=== PATIENT | male | born 1985 | race Caucasian/White ===

== ENCOUNTER 2018-02-07 11:08 | Outpatient (REF) | payer SELFPAY | END 2018-02-07 11:09 | LOC: OM 11:08 | PROVIDERS: PCP Nurse Practitioner; Visit Provider Nurse Practitioner Family | DX: Z02.83 Encounter for blood-alcohol and blood-drug test (principal) ==

== ENCOUNTER 2018-02-07 11:08 | Outpatient (REF) | payer SELFPAY | END 2018-02-07 11:09 | LOC: OM 11:08 | PROVIDERS: PCP Nurse Practitioner; Visit Provider Nurse Practitioner Family | DX: Z02.1 Encounter for pre-employment examination (principal) ==

== ENCOUNTER 2018-06-13 21:38 | Emergency (ER) | payer OTHER, SELFPAY ==
[2018-06-13 21:42] VITALS: BP 135/84; PULSE 99; RESP 16; TEMP 36.5; O2SAT 96
--- NOTE | 2018-06-13 22:24 | W.ED.GENAD ---
Discharge Plan Disposition Patient Disposition: HOME Condition: Stable Discharge Details Chief Complaint: Orthopedic Clinical Impression: Strain of left trapezius muscle Primary Care Provider: Yen Santiago ED Provider: Gee Diamond Home Meds and New Rx's Prescriptions: New cyclobenzaprine 10 mg tablet 10 mg PO TID PRN (Reason: muscle spasm) Qty: 10 RF: 0 No Action No Known Home Meds RF: 0 Discharge Instructions Instructions: Cervical Strain (ED), Muscle Strain (ED) Additional Instructions: You may take 600 mg ibuprofen along with 650 or 1,000 mg of Tylenol every 6 hours as needed for discomfort. Until improvement you should reduce over the head lifting type motions and slowly advance activity as tolerated by pain. If not improving over the next 2 weeks please follow-up with orthopedist for reassessment. Stand Alone Forms: Work Release Referrals: Nahum Forbes MD [ [facility] STAFF PHYSICIAN] - (As needed for reassessment/if not improving in the next 2 week) Discharge Data Discharge Date/Time-TO BE ENTERED AT DEPARTURE: 06/13/18 22:48 Medical Decision Making Patient presenting to the emergency department chief complaint of left shoulder pain. Patient states that he works at [employer] and does repetitive overhead motion but this evening he started having some left sided neck discomfort radiating down into his shoulder which worsened throughout the evening with continued repetitive motions causing him to be unable to lift over his head. He states now that he has been at rest pain has minimalized but continues to hurt with over the head range of motion movements. Physical exam does show muscular tenderness to lateral trapezius and pain with over the head in extension but otherwise unremarkable active and passive range of motion of the shoulder. Exam is otherwise unremarkable. Given concern for muscular strain of left trapezius. I do not feel that any radiological imaging is needed due to patient stating no trauma. A work note excusing him from work tomorrow and informed he should reduce over the head type motions for the next week after he returns to work and then if not improved over the next 2 weeks to follow-up with orthopedist for reassessment. Patient given ibuprofen, acetaminophen, and Flexeril to take this evening before bed. Patient prescribed limited supply of Flexeril to use as needed for muscular tension to see if this assist in discomfort otherwise encouraged to use acetaminophen or Motrin for pain control. After discussion of diagnosis and plan of care patient has no further needs, questions, or concerns and states clear understanding to return to the emergency department for any worsening symptoms. HPI General Mode of arrival: ambulatory. Date/Time Provider Initiated Documentation: 06/13/18 22:01. Limitations to Documentation: no limitations. Information obtained by: patient and RN notes reviewed. History of Present Illness 33 year old M presents to the emergency department with the chief complaint of left shoulder pain, described as mild, with intensity rated at 4. Quality is described as aching, and is localized to the left and upper extremity. Patient neck. Patient started experiencing this hour(s) (2) and it has been constant. Rest improves symptom(s), Movement worsens symptoms . Patient notes no other symptoms.. Patient did receive the following treatments prior to arrival, none Related Data Home Medications Medication Instructions Recorded Confirmed Unknown [No Known Home Meds] 03/26/15 06/13/18 cyclobenzaprine 10 mg PO TID PRN #10 tab 06/13/18 Previous Rx's Medication Instructions Recorded cyclobenzaprine 10 mg PO TID PRN #10 tab 06/13/18 Allergies Allergy/AdvReac Type Severity Reaction Status Date / Time No Known Allergies Allergy Unverified 06/13/18 21:51 General Stated Complaint: Orthopedic ROSE: 4 Review of Systems Constitutional Denies frequent falls Cardiovascular Denies syncope Musculoskeletal Reports as per HPI, Denies back pain, Denies numbness and Denies tingling Neurologic Denies syncope, Denies frequent falls, Denies numbness and Denies tingling PFSH Social History Smoking/Tobacco Use Status: Current every day Exam Const General: cooperative, healthy appearing and no acute distress Orientation: alert, awake and oriented x3 Resp Effort & Inspection: normal respiratory effort and able to speak in complete sentences Cardio Rate: regular rate Rhythm: regular rhythm Back/Spine/Pelvis Cervical Spine: normal cervical lordosis, cervical ROM normal, cervical muscular tenderness (left trapezius), No cervical spasm, No cervical spinal tenderness and No step off deformity Extrem General: normal exam except as noted Left upper extremity: shoulder/upper arm Details: axillary nerve sensory function normal and abnormal ROM Details: pain with active ROM Details: in extension; no tenderness, no swelling, no ecchymosis and no crepitus Course Vital Signs Temperature 36.5 C 06/13/18 21:42 Pulse 99 H 06/13/18 21:42 Respiratory Rate 16 06/13/18 21:42 Blood Pressure 135/84 06/13/18 21:42 Pulse Oximetry 96 06/13/18 21:42 Temperature 36.5 C 06/13/18 21:42 Temperature Source Temporal Artery Scan 06/13/18 21:42 Pulse 99 H 06/13/18 21:42 Respiratory Rate 16 06/13/18 21:42 Respiratory Effort 06/13/18 21:42 Blood Pressure 135/84 06/13/18 21:42 Pulse Oximetry 96 06/13/18 21:42 Oxygen Delivery Method Room Air 06/13/18 21:42 Oxygen Flow Rate 0 06/13/18 21:42 Pain Level 5 06/13/18 21:49
[2018-06-13] MEDS: Cyclobenzaprine 10 MG TAB PO (22:34)
[2018-06-13] MEDS: Ibuprofen 600 MG TAB PO (22:34)
[2018-06-13] MEDS: Acetaminophen 500 MG TAB 1000 MG PO (22:34)
== END 2018-06-13 22:48 | disposition home or self-care (01) ==
PROVIDERS: Emergency Provider Nurse Practitioner Family; PCP Nurse Practitioner
DX: S46.812A Strain of other muscles, fascia and tendons at shoulder and upper arm level, left arm, initial encounter (principal); X50.3XXA Overexertion from repetitive movements, initial encounter
CPT/HCPCS: 99283

== ENCOUNTER 2018-06-26 20:07 | Emergency (ER) | payer SELFPAY ==
[2018-06-26 20:16] VITALS: BP 135/96; PULSE 90; RESP 15; TEMP 36.8; O2SAT 64
--- NOTE | 2018-06-26 20:21 | W.ED.GENAD ---
Discharge Plan Disposition Patient Disposition: HOME Condition: Good Discharge Details Chief Complaint: Nk/Back Pain Clinical Impression: Muscle strain Primary Care Provider: Yen Santiago ED Provider: Landon Kaiser Home Meds and New Rx's Prescriptions: No Action No Known Home Meds RF: 0 cyclobenzaprine 10 mg tablet 10 mg PO TID PRN (Reason: muscle spasm) Qty: 10 RF: 0 Discharge Instructions Instructions: Muscle Strain (ED) Additional Instructions: Please continue to take 800 mg of ibuprofen every 6 hours and up to 1000 mg of Tylenol every 6 hours for control of your pain. Please use ice every 15 minutes. Please avoid any significant heavy lifting or straining with the affected arm. If you notice any worsening of your symptoms, or any new symptoms such as vomiting, diarrhea, fever, chills, shortness of breath, chest pain, numbness, weakness, or fainting , please return immediately to the emergency department for reevaluation. Please follow up with your primary care provider as soon as possible for reassessment and reevaluation. As always, it was a pleasure participating in your medical care today. Stand Alone Forms: Work Release Referrals: Yen Santiago, CONSULTING APPLICATION ENGINEER [Primary Care Provider] - Medical Decision Making This is a 33-year-old male who presents today for signs and symptoms consistent with a mild muscle strain of his right shoulder/trapezius. No evidence of impingement syndrome, significant rotator cuff injury, or other abnormality. He is neurovascularly intact. This is his dominant shoulder. He has had a similar problem that occurred 1-2 weeks ago while at work, and he states that he is coming in today because he does not want to get worse and he wants to make sure it is registered for Workmen's injury issue. With a reassuring physical exam, I feel he can be safely discharged home. I do not see any physical exam findings that serves as a red flag for need for imaging. His signs and symptoms are consistent with a muscle strain. Because of the nature of his work we will give him a work note for the next few days and recommend continue Tylenol and Motrin and ice. We have recommended they follow-up with his PCP. I have extensively reviewed the treatment plan and discharge instructions with the patient. I have addressed all patient concerns at this time. The patient was made aware of what symptoms to monitor for that would warrant a return to the emergency department. Discussed the plan with the patient, they demonstrate verbal understanding and agreement with our assessment and plan at this time. HPI General Date/Time Provider Initiated Documentation: 06/26/18 20:14. 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 He presents today with right shoulder pain. Patient states that earlier today he was moving a heavy slab when he noted pain in his right shoulder and posterior right upper back over the location of his upper trapezius muscle. The patient had gradual worsening of his pain during his time at work, and came here immediately afterwards for evaluation. He states that he had something similar to this on the left-hand side 1-2 weeks ago. He did not want the same injury to be exacerbated today. He denies any associated numbness tingling or weakness. He denies any headache, neck pain, chest pain, shortness of breath. He has not followed up on an outpatient basis with his PCP or orthopedics as recommended on his last visit. Patient denies any other modifying factors. Symptoms are made worse with movement, improved by nothing. He has not taken any Tylenol, Motrin, or used ice. Patient denies any recent surgeries. He denies any IV or illicit drug use. He denies any pertinent family history. Related Data Home Medications Medication Instructions Recorded Confirmed Unknown [No Known Home Meds] 03/26/15 06/13/18 cyclobenzaprine 10 mg PO TID PRN #10 tab 06/13/18 Previous Rx's Medication Instructions Recorded cyclobenzaprine 10 mg PO TID PRN #10 tab 06/13/18 Allergies Allergy/AdvReac Type Severity Reaction Status Date / Time No Known Allergies Allergy Unverified 06/13/18 21:51 General ROSE: 4 Review of Systems Review of Systems All systems reviewed & are unremarkable except as noted in HPI and below [facility] Social History Smoking/Tobacco Use Status: Current every day Exam Narrative Exam Narrative: 1.Const: Well-nourished, Well-developed, appearing stated age 2.Eyes: PERRL, no conjunctival injection, and symmetrical lids. 3.ENT: Atraumatic external nose and ears. Moist MM. Neck: Symmetric, trachea midline, No thyromegaly. 4.CVS: +S1/S2, No murmurs or gallops. Peripheral pulses 2+ and equal in all extremities. Brisk capillary refill in all extremities. 5.RESP: Unlabored respiratory effort. Clear to auscultation bilaterally. No wheezes rales or rhonchi 6.GI: Soft, Nontender/Nondistended, No hepatosplenomegaly. No guarding or rebound. 7.MSK: Normocephalic/Atraumatic, Extremities w/o deformity or ttp No cyanosis or clubbing, Normal movement of all extremities. Patient has +5 out of 5 strength in the left and right distal hands in the medial, ulnar, radial nerve distribution, intact light touch sensation in the left and right hands, and +2 over 2 radial pulses. Patient demonstrates 5 out of 5 strength for flexion and extension at the elbow, flexion extension and abduction of the shoulder. 4 out of 5 strength in abduction of the right shoulder. Slight worsening of his pain with abduction of the right shoulder. Normal range of motion of the shoulder. No signs of entrapment. Minimal pain tenderness over palpation of the lateral component of the trapezius muscle. No evidence of muscle belly rupture. No C-spine tenderness. No other significant abnormalities. Radial pulses +2 bilaterally, sensation is intact, brisk capillary refill is present peer 8.Skin: Warm, Dry. No rashes or lesions. 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 Sensation grossly intact, no focal neurologic deficits. 10.Psych: (AAO) x3. Appropriate mood and affect
[2018-06-26 20:25] VITALS: BP 135/96; PULSE 90; RESP 15; O2SAT 98
--- NOTE | 2018-06-26 20:31 | ED.GENADUL_ITS ---
Discharge Plan Disposition Patient Disposition: HOME Condition: Good Discharge Details Chief Complaint: Nk/Back Pain Clinical Impression: Muscle strain Primary Care Provider: Yen Santiago ED Provider: Landon Kaiser Home Meds and New Rx's Prescriptions: No Action No Known Home Meds RF: 0 cyclobenzaprine 10 mg tablet 10 mg PO TID PRN (Reason: muscle spasm) Qty: 10 RF: 0 Discharge Instructions Instructions: Muscle Strain (ED) Additional Instructions: Please continue to take 800 mg of ibuprofen every 6 hours and up to 1000 mg of Tylenol every 6 hours for control of your pain. Please use ice every 15 minutes. Please avoid any significant heavy lifting or straining with the affected arm. If you notice any worsening of your symptoms, or any new symptoms such as vomiting, diarrhea, fever, chills, shortness of breath, chest pain, numbness, weakness, or fainting , please return immediately to the emergency department for reevaluation. Please follow up with your primary care provider as soon as possible for reassessment and reevaluation. As always, it was a pleasure participating in your medical care today. Stand Alone Forms: Work Release Referrals: Yen Santiago, WOODWINDS TEACHER [Primary Care Provider] - Medical Decision Making This is a 33-year-old male who presents today for signs and symptoms consistent with a mild muscle strain of his right shoulder/trapezius. No evidence of impingement syndrome, significant rotator cuff injury, or other abnormality. He is neurovascularly intact. This is his dominant shoulder. He has had a similar problem that occurred 1-2 weeks ago while at work, and he states that he is coming in today because he does not want to get worse and he wants to make sure it is registered for Workmen's injury issue. With a reassuring physical exam, I feel he can be safely discharged home. I do not see any physical exam findings that serves as a red flag for need for imaging. His signs and symptoms are consistent with a muscle strain. Because of the nature of his work we will give him a work note for the next few days and recommend continue Tylenol and Motrin and ice. We have recommended they follow-up with his PCP. I have extensively reviewed the treatment plan and discharge instructions with the patient. I have addressed all patient concerns at this time. The patient was made aware of what symptoms to monitor for that would warrant a return to the emergency department. Discussed the plan with the patient, they demonstrate verbal understanding and agreement with our assessment and plan at this time. HPI General Date/Time Provider Initiated Documentation: 06/26/18 20:14 . 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 He presents today with right shoulder pain. Patient states that earlier today he was moving a heavy slab when he noted pain in his right shoulder and posterior right upper back over the location of his upper trapezius muscle. The patient had gradual worsening of his pain during his time at work, and came here immediately afterwards for evaluation. He states that he had something similar to this on the left-hand side 1-2 weeks ago. He did not want the same injury to be exacerbated today. He denies any associated numbness tingling or weakness. He denies any headache, neck pain, chest pain, shortness of breath. He has not followed up on an outpatient basis with his PCP or orthopedics as recommended on his last visit. Patient denies any other modifying factors. Symptoms are made worse with movement, improved by nothing. He has not taken any Tylenol, Motrin, or used ice. Patient denies any recent surgeries. He denies any IV or illicit drug use. He denies any pertinent family history. Related Data Home Medications Medication Instructions Recorded Confirmed Unknown [No Known Home Meds] 03/26/15 06/13/18 cyclobenzaprine 10 mg PO TID PRN #10 tab 06/13/18 Previous Rx's Medication Instructions Recorded cyclobenzaprine 10 mg PO TID PRN #10 tab 06/13/18 Allergies Allergy/AdvReac Type Severity Reaction Status Date / Time No Known Allergies Allergy Unverified 06/13/18 21:51 General ROSE: 4 Review of Systems Review of Systems All systems reviewed & are unremarkable except as noted in HPI and below [facility] Social History Smoking/Tobacco Use Status: Current every day Exam Narrative Exam Narrative: 1.Const: Well-nourished, Well-developed, appearing stated age 2.Eyes: PERRL, no conjunctival injection, and symmetrical lids. 3.ENT: Atraumatic external nose and ears. Moist MM. Neck: Symmetric, trachea midline, No thyromegaly. 4.CVS: +S1/S2, No murmurs or gallops. Peripheral pulses 2+ and equal in all extremities. Brisk capillary refill in all extremities. 5.RESP: Unlabored respiratory effort. Clear to auscultation bilaterally. No wheezes rales or rhonchi 6.GI: Soft, Nontender/Nondistended, No hepatosplenomegaly. No guarding or rebound. 7.MSK: Normocephalic/Atraumatic, Extremities w/o deformity or ttp No cyanosis or clubbing, Normal movement of all extremities. Patient has +5 out of 5 strength in the left and right distal hands in the medial, ulnar, radial nerve distribution, intact light touch sensation in the left and right hands, and +2 over 2 radial pulses. Patient demonstrates 5 out of 5 strength for flexion and extension at the elbow, flexion extension and abduction of the shoulder. 4 out of 5 strength in abduction of the right shoulder. Slight worsening of his pain with abduction of the right shoulder. Normal range of motion of the shoulder. No signs of entrapment. Minimal pain tenderness over palpation of the lateral component of the trapezius muscle. No evidence of muscle belly rupture. No C- spine tenderness. No other significant abnormalities. Radial pulses +2 bilaterally, sensation is intact, brisk capillary refill is present peer 8.Skin: Warm, Dry. No rashes or lesions. 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 Sensation grossly intact, no focal neurologic deficits. 10.Psych: (AAO) x3. Appropriate mood and affect
== END 2018-06-26 20:35 | disposition home or self-care (01) ==
PROVIDERS: Emergency Provider Student in an Organized Health Care Education/Training Program; PCP Nurse Practitioner
DX: S46.911A Strain of unspecified muscle, fascia and tendon at shoulder and upper arm level, right arm, initial encounter (principal); X58.XXXA Exposure to other specified factors, initial encounter; Y99.0 Civilian activity done for income or pay
CPT/HCPCS: 99282

== ENCOUNTER 2019-02-03 01:40 | Emergency (ER) | payer SELFPAY ==
[2019-02-03 01:47] VITALS: BP 137/83; PULSE 110; RESP 20; TEMP 37.7; O2SAT 100
--- NOTE | 2019-02-03 01:56 | ED.GENADUL_ITS ---
Discharge Plan Disposition Patient Disposition: HOME Condition: Improving Discharge Details Chief Complaint: EarProblem Clinical Impression: Otitis externa Primary Care Provider: Yen Santiago ED Provider: Negro Champion Home Meds and New Rx's Prescriptions: No Action No Known Home Meds RF: 0 cyclobenzaprine 10 mg tablet 10 mg PO TID PRN (Reason: muscle spasm) Qty: 10 RF: 0 Discharge Instructions Instructions: Otitis Externa (ED) Additional Instructions: Please use Ciprodex drops 4 drops to left ear twice daily for 7 days. May use ibuprofen, Tylenol if needed for pain. Next dose in 4 hours. Home to bed this evening. Follow-up with regular doctor if not improving in 3 days time. Return for any acute concerns Medical Decision Making 33-year-old male who cleaned his ears with hydrogen peroxide as if he developed left ear pain tonight. He has evidence of left external otitis on exam. Nauseated and vomited after arrival. Given Zofran, 2 hydrocodone by mouth, and started on Ciprodex drops. HPI General Mode of arrival: ambulatory . Date/Time Provider Initiated Documentation: 02/03/19 01:48 . Limitations to Documentation: no limitations . Information obtained by: patient and family . History of Present Illness 33 year old M presents to the emergency department with the chief complaint of Left ear pain, described as moderate, Quality is described as dull and constant, and is localized to the left. Patient reports no radiation. Patient started experiencing this hour(s) and it has been constant. No relieving factors improve symptom(s), No exacerbating factors reported . Patient notes no other symptoms.. Patient did receive the following treatments prior to arrival, NSAID Related Data Home Medications Medication Instructions Recorded Confirmed Unknown [No Known Home Meds] 03/26/15 02/03/19 cyclobenzaprine 10 mg PO TID PRN #10 tab 06/13/18 06/26/18 Previous Rx's Medication Instructions Recorded cyclobenzaprine 10 mg PO TID PRN #10 tab 06/13/18 Allergies Allergy/AdvReac Type Severity Reaction Status Date / Time No Known Allergies Allergy Unverified 02/03/19 01:50 General Stated Complaint: EarProblem ROSE: 4 Review of Systems Review of Systems 6 systems reviewed and otherwise negative [facility] Social History Smoking/Tobacco Use Status: Current every day Tobacco Type: cigarettes Alcohol Intake: current Drug use: Never Do you feel safe at home: Yes Do you feel safe in your relationship?: Yes Exam Narrative Exam Narrative: GEN: awake, alert, oriented 3. Pleasant, well groomed, interactive. HEAD: Normocephalic, atraumatic ENT: Mucous membranes moist, oropharynx unremarkable, right tympanic membrane slightly erythematous, no distention. Left external ear canal cobblestoned, swollen EYES: PERRL, EOMI NECK: Full ROM, no SAQIB, no menigismus CHEST/RESP: Nontender, clear to auscultation bilateral, no wheeze/rhonchi/rales CARDIOVASCULAR: RRR, no murmur, rub rosemary. 2+ Rad pulse bilateral EXT: Full ROM, no edema, no rash Neuro: Grossly normal neurologic exam, conversant, interactive. Psych: Speech fluent, thoughts congruent, affect normal Course Vital Signs Temperature 37.7 C H 02/03/19 01:47 Pulse 110 H 02/03/19 01:47 Respiratory Rate 20 02/03/19 01:47 Blood Pressure 137/83 02/03/19 01:47 Pulse Oximetry 100 02/03/19 01:47 Temperature 37.7 C H 02/03/19 01:47 Temperature Source Temporal Artery Scan 02/03/19 01:47 Pulse 110 H 02/03/19 01:47 Respiratory Rate 20 02/03/19 01:47 Respiratory Effort Non-Labored 02/03/19 01:47 Blood Pressure 137/83 02/03/19 01:47 Pulse Oximetry 100 02/03/19 01:47 Oxygen Delivery Method Room Air 02/03/19 01:47 Oxygen Flow Rate 0 02/03/19 01:47 Pain Level 8 02/03/19 01:47
[2019-02-03] MEDS: HYDROcodone 5/Acetaminophen 325 TAB PO (02:09)
[2019-02-03] MEDS: Ciprofloxacin/Dexameth. 7.5 ML BTL AS (02:10)
[2019-02-03] MEDS: Ondansetron O.D.T. 4 MG TABEF PO (02:10)
== END 2019-02-03 02:14 | disposition home or self-care (01) ==
PROVIDERS: Emergency Provider Emergency Medicine; PCP Nurse Practitioner
DX: H60.502 Unspecified acute noninfective otitis externa, left ear (principal)
CPT/HCPCS: 99283

== ENCOUNTER 2019-02-03 10:37 | Emergency (ER) | payer SELFPAY ==
[2019-02-03 10:40] VITALS: BP 136/92; PULSE 94; RESP 18; TEMP 36.6; O2SAT 100
--- NOTE | 2019-02-03 11:06 | ED.GENADUL_ITS ---
Discharge Plan Disposition Patient Disposition: HOME Condition: Stable Discharge Details Chief Complaint: EarProblem Clinical Impression: Otitis externa Primary Care Provider: Yen Santiago ED Provider: Nichole Jasso Home Meds and New Rx's Prescriptions: New ciprofloxacin HCl 500 mg tablet 500 mg PO BID Qty: 13 RF: 0 Continued Ciprodex 0.3-0.1 % Drops,Suspension 4 drp OTIC (EAR) BID RF: 0 Discharge Instructions Instructions: Ciprofloxacin (By mouth), Oxycodone/Acetaminophen (By mouth), Otitis Externa (ED) Additional Instructions: Please return immediately to the emergency department if you develop any new or worsening symptoms or if you become otherwise concerned. It is extremely important that you call as soon as possible to make an appointment to be seen in follow-up for this visit by your primary care doctor and by an Ear, Nose and Throat specialist. Referrals: Carl Husain DO [OSTEOPATHIC DOCTOR] - Yen Santiago, LU [Primary Care Provider] - Discharge Data Discharge Date/Time-TO BE ENTERED AT DEPARTURE: 02/03/19 12:02 Medical Decision Making Deng Katz is a 33-year-old man with history of asthma who presented to the emergency department for continued ear pain after being seen in the emergency department earlier this morning and diagnosed with otitis externa. On exam patient is nontoxic-appearing, but does appear uncomfortable. Normal right canal and TM. Left canal edematous, mild erythema, some purulent drainage. TM not able to be fully visualized secondary to edema of the canal, however canal is patent. Normal inspection of the external ear. No mastoid, preauricular, neck, or jaw tenderness to palpation. No trismus. Exam/history is not consistent with malignant otitis externa, meningitis, other deep space infection or extension. Plan to add p.o. Cipro, continue Ciprodex, oxycodone here. Canal is patent, wick would likely not stay in place, will not place at this time. Will give starter pack of Percocet (2 tabs). I had a lengthy discussion with the patient regarding safe opiate use, return to emergency department precautions, home care, and importance of outpatient follow-up. Patient verbalized understanding of the plan was amenable. All questions were answered. Patient was discharged home with clear plan for outpatient follow-up. Medical Records Medical records reviewed: Yes I reviewed the patient's medical records. HPI General Mode of arrival: ambulatory . Date/Time Provider Initiated Documentation: 02/03/19 10:43 . Limitations to Documentation: no limitations . Information obtained by: patient, family, RN notes reviewed and old records reviewed . HPI Narrative: Deng Katz is a 33 y/o man with history of asthma presenting to the emergency department with ear pain. Patient and record review provide the history. Patient reports that he awoke at approximately 1:30 in the morning with left-sided ear pain. Patient reports that he uses hydrogen peroxide once every 2 months to clean his ears. Patient reports that he used hydroperoxide 2 days ago. He does not use Q-tips, has not gone swimming, no other unusual inciting factor. He reports that sometime after using hydrogen peroxide 2 days ago he has been having very mild left-sided ear pain, which became severe last night and woke him from sleep. He presented to the emergency department at that time. Patient was diagnosed with otitis externa, was started on Ciprodex drops, and discharged home. Patient reports that his pain has not changed since that time and he got very little sleep secondary to the pain. Patient's reports that his ear canal also seems more swollen than she thought it was earlier. Patient vomited during his earlier emergency department visit, but otherwise has not had vomiting. He denies any pain other than ear pain, fevers, diarrhea, recent illness. Related Data Home Medications Medication Instructions Recorded Confirmed Ciprodex 4 drp OTIC (EAR) BID 02/03/19 02/03/19 ciprofloxacin HCl 500 mg PO BID #13 tab 02/03/19 Previous Rx's Medication Instructions Recorded ciprofloxacin HCl 500 mg PO BID #13 tab 02/03/19 Allergies Allergy/AdvReac Type Severity Reaction Status Date / Time No Known Allergies Allergy Unverified 02/03/19 10:46 General Stated Complaint: EarProblem ROSE: 4 Review of Systems Review of Systems Constitutional: denies fevers Eyes: denies eye pain ENT: denies facial pain, dental pain, sore throat, reports ear pain Cardiovascular: denies chest pain Respiratory: denies SOB, cough GI: denies abdominal pain, diarrhea, reports vomiting earlier as per HPI : denies flank pain MSK: denies back pain, neck pain, arthralgias, myalgias Skin: denies rash Neuro: denies headaches, numbness, weakness PFSH Social History Smoking/Tobacco Use Status: Current every day Tobacco Type: cigarettes Alcohol Intake: current Drug use: Never Do you feel safe at home: Yes Do you feel safe in your relationship?: Yes Exam Narrative Exam Narrative: Constitutional: well and [id number], pleasant, conversing normally HENT: head atraumatic/normocephalic/normal inspection, mucous membranes moist, left ear with some edema of the canal preventing full visualization of the tympanic membrane but no apparent perforation, left canal erythematous with mild purulent drainage, canal is patent, tenderness with manipulation of the pinna and tragus, normal inspection of the external ear, no TMJ/sinus/jaw/preauricular/mastoid/neck tenderness to palpation on the left, no trismus, no intraoral lesion, normal oropharynx, handling secretions without issue. Eyes: conjunctiva normal, sclera normal, pupils 3mm b/l Neck: no stridor, normal painless ROM, trachea midline Resp: normal work of breathing, LCTAB Cardio: normal rate, normal rhythm, no murmur appreciated Skin: warm, dry, normal color, no rash Neuro: alert, not altered, grossly non-focal, normal tone Ext: Moving all extremities equally Psych: normal mood, normal affect, normal behavior Course Vital Signs Temperature 36.6 C 02/03/19 10:40 Pulse 94 H 02/03/19 10:40 Respiratory Rate 18 02/03/19 10:40 Blood Pressure 136/92 H 02/03/19 10:40 Pulse Oximetry 100 02/03/19 10:40 Temperature 36.6 C 02/03/19 10:40 Temperature Source Skin 02/03/19 10:40 Pulse 94 H 02/03/19 10:40 Respiratory Rate 18 02/03/19 10:40 Respiratory Effort 02/03/19 10:48 Blood Pressure 136/92 H 02/03/19 10:40 Blood Pressure Position Sitting 02/03/19 10:40 Pulse Oximetry 100 02/03/19 10:40 Oxygen Delivery Method Room Air 02/03/19 10:40 Oxygen Flow Rate 0 02/03/19 10:40 Pain Level 9 02/03/19 11:04 Comment 08/12/19 10:40
[2019-02-03] MEDS: Ciprofloxacin 500 MG TAB PO (11:41)
[2019-02-03] MEDS: oxyCODONE 5 MG TAB PO (11:41)
--- NOTE | 2019-02-03 12:09 | NUR.NOTE ---
Patient discharged with 2 percocet for home use per Dr. Joseluis Jasso. Unable to scan meds in due to computer says someone else in that screen updating info.
== END 2019-02-03 12:02 | disposition home or self-care (01) ==
LOC: ER 11:48
PROVIDERS: Emergency Provider Student in an Organized Health Care Education/Training Program; PCP Nurse Practitioner
DX: H60.502 Unspecified acute noninfective otitis externa, left ear (principal); F17.210 Nicotine dependence, cigarettes, uncomplicated
CPT/HCPCS: 99283

== ENCOUNTER 2022-04-25 17:19 | Emergency (ER) | payer MEDICAID, SELFPAY ==
[2022-04-25 17:26] VITALS: BP 140/86; PULSE 87; RESP 18; TEMP 36.8; O2SAT 96
--- NOTE | 2022-04-25 17:45 | ED.GENADUL_ITS ---
Discharge Plan Disposition Patient Disposition: HOME Condition: Stable Discharge Details Clinical Impression: Otitis externa Primary Care Provider: Carl Howell ED Provider: Gee Diamond Home Meds and New Rx's Prescriptions: Continued ciprofloxacin-dexamethasone 0.3-0.1 % Drops,Suspension 4 drp OTIC (EAR) BID 7 Days Qty: 10 0RF Discontinued ciprofloxacin HCl 500 mg tablet 500 mg PO BID Qty: 13 0RF Discharge Instructions Instructions: Otitis Externa (ED) Additional Instructions: If you develop any new or significant worsening of symptoms feel free to return to the emergency department or follow-up with urgent care or primary care provider for reassessment. Otherwise take provided drops as prescribed and if not improving in the next week please follow-up with your primary care provider for recheck. Referrals: Carl Howell [Primary Care Provider] - Discharge Data Discharge Date/Time-TO BE ENTERED AT DEPARTURE: 04/25/22 18:05 Medical Decision Making Patient presenting to the emergency department for right ear pain. Patient reports this is been going on for last 2 days. Patient denies any injury or trauma associated URI or other symptoms. He does state that he is prone to otitis externa and this feels similar. Denies any discharge from the ear. Physical exam does show edema and erythema to the canal with some white ottic discharge. Exam is otherwise unremarkable no signs of mastoiditis or other systemic illness or infection. Will place patient on Ciprodex drops which patient states have been effective in the past and he will monitor symptoms and follow-up as needed for any continued symptoms or lack of improvement. Did offer further ear irrigation as I feel that manual removal would be too uncomfortable given patient's pain level. At this time patient refused and states understanding that this would speed up his improvement. After discussion of diagnosis and plan of care patient has no further needs, questions, or concerns and states clear understanding to return to the emergency department for any worsening symptoms. This documentation was generated using [employer] system, please disregard any oddities of phrase or misspellings. HPI General Mode of arrival: ambulatory . Date/Time Provider Initiated Documentation: 04/25/22 17:22 . Limitations to Documentation: no limitations . Information obtained by: patient and RN notes reviewed . History of Present Illness 37 year old M presents to the emergency department with the chief complaint of Right ear pain , described as moderate and similar to prior episodes, with intensity rated at 5. Quality is described as aching, and is localized to the right (ear). Patient reports no radiation. Patient started experiencing this day(s) (2) and it has been constant. No relieving factors improve symptom(s), No exacerbating factors reported . Patient notes no other symptoms.. Patient did receive the following treatments prior to arrival, none Related Data Home Medications Medication Instructions Recorded Confirmed ciprofloxacin 0.3 %-dexamethasone 4 drp otic (ear) BID 7 days #10 mL 04/25/22 0.1 % ear drops,suspension Previous Rx's Medication Instructions Recorded ciprofloxacin 0.3 %-dexamethasone 4 drp otic (ear) BID 7 days #10 mL 04/25/22 0.1 % ear drops,suspension Allergies Allergy/AdvReac Type Severity Reaction Status Date / Time No Known Allergies Allergy Unverified 02/03/19 10:46 General Stated Complaint: EarProblem ROSE: 4 Review of Systems Narrative: 6 systems reviewed and unremarkable except what is marked below. Constitutional Constitutional: Denies chills, Denies fever(s) and Denies headache(s) ENT Ears, Nose, Mouth, and Throat: Reports as per HPI, Denies ear discharge, Reports otalgia, Denies facial pain, Denies headache(s), Denies nasal congestion, Denies neck pain and Denies sore throat Musculoskeletal Musculoskeletal: Denies neck pain Neurologic Neurologic: Denies headache(s) PFSH All Active Problems (Updated 04/25/22 @ 17:47 by Gee Diamond NP) Otitis externa (Acute) History of smoking (Acute 04/07/15) Elevated blood pressure reading (Acute 04/07/15) Abnormal EKG (Acute 04/07/15) Social History Smoking/Tobacco Use Status: Current every day Tobacco Type: cigarettes Smoking risk assessment performed?: Yes Alcohol Intake: current Drug use: Never Substance use type: does not use Do you feel safe at home: Yes Do you feel safe in your relationship?: Yes Exam Const General: cooperative, comfortable and no acute distress Orientation: alert and awake HENNJ Head: normal to inspection, normocephalic and atraumatic Ears: hearing grossly normal bilaterally and EAC abnormal erythema on the right, edema on the right and EAC tenderness on the right General nose exam: external nose normal Face and sinus: no erythema Mouth: oral mucosae normal, no drooling, no muffled voice and no trismus Throat: posterior oropharynx normal Neck Neck: normal visual inspection, full ROM, no lymphadenopathy, no meningeal signs, trachea midline and supple Resp Effort & Inspection: normal respiratory effort and able to speak in complete sentences Auscultation: clear to auscultation bilaterally Cardio Rate: regular rate Rhythm: regular rhythm Heart Sounds: S1 normal and S2 normal Skin General skin exam: no rashes or lesions noted and dry skin (warm) Neuro General: patient alert, patient awake, patient oriented x3, gait normal and moves all extremities Cognition: normal cognition Speech: speech normal Course Vital Signs Vital signs: Vital Signs Temperature 36.8 C 04/25/22 17:26 Pulse 87 04/25/22 17:26 Respiratory Rate 18 04/25/22 17:26 Blood Pressure 140/86 04/25/22 17:26 Pulse Oximetry 96 04/25/22 17:26 Temperature 36.8 C 04/25/22 17:26 Temperature Source Temporal Artery Scan 04/25/22 17:26 Pulse 87 04/25/22 17:26 Respiratory Rate 18 04/25/22 17:26 Blood Pressure 140/86 04/25/22 17:26 Blood Pressure Position Sitting 04/25/22 17:26 Pulse Oximetry 96 04/25/22 17:26 Oxygen Delivery Method Room Air 04/25/22 17:26 Oxygen Flow Rate 0 04/25/22 17:26 Pain Level 5 04/25/22 17:26
== END 2022-04-25 18:05 | disposition home or self-care (01) ==
LOC: ER 18:03
PROVIDERS: Emergency Provider Nurse Practitioner Family; PCP Physician Assistant
DX: H60.591 Other noninfective acute otitis externa, right ear (principal)
CPT/HCPCS: 99283